=== PATIENT | male | born 1940 ===

== ENCOUNTER 2021-12-06 16:26 | Emergency (ER) | payer OTHER ==
[2021-12-06] MEDS ORDERED: Acetaminophen/HYDROcodone 325-10 MG Tab PO ONE (16:27)
[2021-12-06] MEDS ORDERED: Cephalexin 500 MG Cap PO ONE ×2 (16:27→18:32)
[2021-12-06] MEDS ORDERED: Lidocaine 1% 30 ML SDV INJECT ONE (17:46)
[2021-12-06] MEDS ORDERED: Bacitracin Oint 1 GM U/D Packet TOP ONE (18:32)
[2021-12-06] MEDS ORDERED: Acetaminophen/HYDROcodone 325-10 MG Tab ONE (18:38)
[2021-12-06] MEDS ORDERED: Cephalexin 500 MG Cap ONE (18:38)
== END 2021-12-06 18:56 | disposition home or self-care (01) ==
LOC: DL.ED 16:26
DX: S62.522B Displaced fracture of distal phalanx of left thumb, initial encounter for open fracture (principal); W23.1XXA Caught, crushed, jammed, or pinched between stationary objects, initial encounter
CPT/HCPCS: 12002; 73140-FA; 99283; 99283-25; A9270-GY